=== PATIENT | female | born 1990 | race Two or more races ===

== ENCOUNTER 2022-02-28 23:20 | Outpatient (CLI) | payer OTHER ==
[2022-03-01] MEDS ORDERED: IRON18 MG (00:39)
[2022-03-01] MEDS ORDERED: PRENATAL TABLE1 EAC6 (00:39)
[2022-03-01] MEDS ORDERED: SYNTHROID75 MCG PO (00:40)
== END 2022-03-01 20:15 | disposition home or self-care (01) ==
LOC: OBS/DEL 23:20
PROVIDERS: ATTEND Specialist
DX: O46.8X3 Other antepartum hemorrhage, third trimester (principal); Z3A.32 32 weeks gestation of pregnancy; O99.013 Anemia complicating pregnancy, third trimester

== ENCOUNTER 2022-03-16 10:09 | Inpatient (IN) | payer OTHER ==
[~2022-03-16] VITALS: Ht 160 cm; Wt 1.8 kg
[~2022-03-16 10:09] MED LIST: IRON18 MG; PRENATAL TABLE1 EAC6; SYNTHROID75 MCG PO
== END 2022-03-19 12:07 | disposition home or self-care (01) | DRG 785 ==
LOC: OBS/DEL 10:09 → OB/GYN 11:39 → LDR 11:39 → OB/GYN 22:20
PROVIDERS: ADMIT Specialist; ATTEND Specialist
PROC: 0UB70ZZ Excision of Bilateral Fallopian Tubes, Open Approach (ICD-10-PCS; 2022-03-16)
PROC: 4A1HXCZ Monitoring of Products of Conception, Cardiac Rate, External Approach (ICD-10-PCS; 2022-03-16)
PROC: 10D00Z1 Extraction of Products of Conception, Low, Open Approach (ICD-10-PCS; principal; 2022-03-16 19:00)
DX: O42.013 Preterm premature rupture of membranes, onset of labor within 24 hours of rupture, third trimester (principal); O34.211 Maternal care for low transverse scar from previous cesarean delivery; Z3A.34 34 weeks gestation of pregnancy; Z37.0 Single live birth; Z30.2 Encounter for sterilization